=== PATIENT | male | born 1965 | race Two or more races ===

== ENCOUNTER → 2025-02-03 | Emergency (ER) | payer OTHER ==
[~2025-02-03] VITALS: Ht 185.4 cm; Wt 95.3 kg
[~2025-02-03] MED LIST: SYNTHROID75 MCG; XARELTO10 MG; XARELTO20 MG
== END | disposition left against medical advice (07) ==
LOC: ER 00:35
DX: Z53.21 Procedure and treatment not carried out due to patient leaving prior to being seen by health care provider (principal)